=== PATIENT | male | born 1945 | race Caucasian/White ===

== ENCOUNTER 2019-04-07 13:35 | Outpatient (CLI) | payer MEDICARE ==
--- NOTE | 2019-04-07 15:10 | XRAY Report ---
Reason: CONTUSION OF LEFT FOREARM,INITIAL ENCOUNTER Procedure Date: 04/07/2019 Accession Number: [id number] / [id number] Procedure: WCP - Forearm LT CPT Code: FULL RESULT: EXAM: LEFT FOREARM RADIOGRAPHY EXAM DATE: 04/07/2019 01:51 PM. CLINICAL HISTORY: Contusion of left forearm, initial encounter. COMPARISON: None. TECHNIQUE: 2 views. FINDINGS: Bones: Apparent lucency traversing the proximal diaphysis of the radius without cortical disruption, nutrient canal versus soft tissue finding. No fractures or bone lesions. Joints: Normal. No effusions or subluxations in the visualized wrist or elbow joints. Soft Tissues: The aforementioned linear soft tissue lucency on the AP view potentially represents soft tissue injury such as laceration. No soft tissue gas or radiopaque foreign body is detected. Soft tissue swelling is noted along the forearm. IMPRESSION: No definite fracture or dislocation. Question soft tissue laceration as described. RADIA
== END 2019-04-07 13:36 | disposition home or self-care (01) ==
LOC: DI.WCP 13:35
PROVIDERS: ATTEND Family Medicine
DX: S50.12XA Contusion of left forearm, initial encounter (principal)

== ENCOUNTER 2019-04-07 13:36 | Outpatient (CLI) | payer MEDICARE ==
--- NOTE | 2019-04-07 15:15 | XRAY Report ---
Reason: CONTUSION OF LEFT FOREARM,INITIAL ENCOUNTER Procedure Date: 04/07/2019 Accession Number: [id number] / [id number] Procedure: WCP - Wrist 3 View LT CPT Code: FULL RESULT: EXAM: LEFT WRIST RADIOGRAPHY. EXAM DATE: 04/07/2019 01:51 PM. CLINICAL HISTORY: Contusion of left forearm, initial encounter. COMPARISON: None. TECHNIQUE: 3 views. FINDINGS: Bones: The bones are qualitatively osteopenic; this limits evaluation for underlying fractures or masses. There is a posttraumatic deformity of the distal ulna, appearance favors chronicity. No acute fractures or bone lesions. Joints: Normal. No subluxations. Soft Tissues: Normal. No soft tissue swelling. IMPRESSION: No acute fracture or dislocation. RADIA
== END 2019-04-07 13:37 | disposition home or self-care (01) ==
LOC: DI.WCP 13:36
PROVIDERS: ATTEND Family Medicine
DX: S50.12XA Contusion of left forearm, initial encounter (principal); M81.0 Age-related osteoporosis without current pathological fracture; M21.932 Unspecified acquired deformity of left forearm

== ENCOUNTER 2020-08-22 13:40 | Emergency (ER) | payer MEDICARE ==
[2020-08-22] MEDS ORDERED: TETANUS/DIPHTHERIA/PERTUSSIS 0.5 ML SYRINGE IM ONE (16:09)
--- NOTE | 2020-08-22 16:48 | XRAY Report ---
PROCEDURE: Foot 3 View LT INDICATIONS: PUNCTURE WOUND TECHNIQUE: 3 views of the foot were acquired. COMPARISON: None FINDINGS: Bones: No fractures or dislocations. No suspicious bony lesions. Age-appropriate degenerative small ges are seen. Incidental note is made of a bipartite medial sesamoid bone. Incidental note is made of an accessory ossicle, an os peroneum. Soft tissues: No tibiotalar joint effusion. Achilles tendon appears normal. No radiopaque foreign bodies are seen. IMPRESSION: No radiopaque foreign bodies are seen. No focal acute bony abnormality is seen. If there is strong clinical concern for developing osteomyelitis in this patient with this given hist ory, then please consider a dedicated MRI (without and with contrast) for further evaluation (assumin g that there is no contraindication). Reviewed by: Carlitos Kelly MD on 08/22/2020 3:46 PM [facility] Approved by: Carlitos Kelly MD on 08/22/2020 3:46 PM [facility] Station ID: [id number]
--- NOTE | 2020-08-22 17:01 | ED Physician Documentation ---
History of Present Illness - Stated complaint Stated Complaint: STEPPED ON NAIL - Chief complaint Chief Complaint: General - History obtained from History obtained from: Patient - History of Present Illness Timing: Prior to arrival Pain level max: 3 Pain level now: 3 Quality: sharp, sudden onset constant nonradiating pain - Additonal information Additional information: 75yM stepped on nail to left foot through his shoe just sea captain. tetanus not utd. no medication allergies known. Review of Systems Constitutional: denies: Fever, Chills Skin: reports: Other (+puncture wound) Musculoskeletal: denies: Joint pain PD PAST MEDICAL HISTORY - Past Medical History Past Medical History: Yes Cardiovascular: None Respiratory: None Endocrine/Autoimmune: None GI: Colon polyps : Frequency, Other HEENT: None Psych: None Musculoskeletal: Osteoarthritis Derm: None, Other - Past Surgical History Past Surgical History: Yes General: Colonoscopy Ortho: Shoulder arthroplasty Neuro: Other HEENT: Tonsil/Adenoidectomy, Other - Present Medications Home Medications: Ambulatory Orders Medication Instructions Recorded Confirmed Aspirin [Aspir 81] 81 mg PO DAILY 12/01/14 07/21/16 Flaxseed Oil [Flax Seed Oil] 1,000 mg PO DAILY 12/01/14 07/21/16 Krill Oil 1,000 mg PO DAILY 12/01/14 07/21/16 Meclizine HCl 25 mg PO Q6H PRN #20 tab.chew 07/21/16 Ciprofloxacin HCl [Cipro] 500 mg PO BID 7 Days #14 tablet 08/22/20 - Allergies Allergies/Adverse Reactions: Allergies Allergy/AdvReac Type Severity Reaction Status Date / Time No Known Drug Allergies Allergy Verified 07/21/16 14:23 - Social History Does the pt smoke?: No Smoking Status: Never smoker Does the pt drink ETOH?: Yes Does the pt have substance abuse?: No - Immunizations Immunizations are current?: No - POLST Patient has POLST: No PD ED PE NORMAL - General General: Alert and oriented X 3 - Derm Derm: Normal color, Other (puncture wound to L heel, hemostatic) - Extremities Extremities: No deformity, Normal ROM s pain - Neuro Neuro: Alert and oriented X 3 Results - Vitals Vitals: Vital Signs - 24 hr 08/22/20 13:49 Temperature 36.6 C Heart Rate 56 L Respiratory 18 Rate Blood Pressure 144/80 H O2 Saturation 97 Oxygen O2 Source Room air PD MEDICAL DECISION MAKING - ED course ED course: 75-year-old man with no known drug allergies, last known tetanus greater than 10 years presents after stepping on nail. Tetanus updated, no foreign body visualized on x-ray. Will send to biotics with pseudomonal coverage. Strict return precautions given Departure - Departure Disposition: Home, Self Care Clinical Impression: Puncture wound Instructions: ED Wound Puncture General Prescriptions: Ciprofloxacin HCl [Cipro] 500 mg PO BID 7 Days #14 tablet Comments: You have been seen in the ED for a puncture wound to your foot. Your x-ray did not show any signs of material in the wound. Your tetanus has been updated today. It is important that you follow-up if you have any signs of infection at the wound site. Check your wound daily for signs of infection. Wash thoroughly with soap and water daily. Take your antibiotics as prescribed. Return to the ED for any worsening of symptoms
[2020-08-22] MEDS ORDERED: CIPROFLOXACIN 250 MG TABLET PO STA (17:16)
[2020-08-22] MEDS ORDERED: IBUPROFEN 600 MG TABLET PO STA (17:18)
[2020-08-22 17:45] VITALS: BP 143/78
== END 2020-08-22 17:26 | disposition home or self-care (01) ==
LOC: ED 13:40
DX: S91.332A Puncture wound without foreign body, left foot, initial encounter (principal); W45.0XXA Nail entering through skin, initial encounter; W22.8XXA Striking against or struck by other objects, initial encounter; Z23 Encounter for immunization; Z79.82 Long term (current) use of aspirin
CPT/HCPCS: 73630; 90471; 90715; 99283; A9270

== ENCOUNTER 2021-03-17 08:00 | Outpatient (CLI) | payer MEDICARE ==
[2021-03-17 12:22] LABS: BASOPHILS % (AUTO) 0.5 %; EOSINOPHILS # (AUTO) 0.1 10^3/uL (0.0-0.7); EOSINOPHILS % (AUTO) 1.4 %; HCT - HEMATOCRIT 43.5 % (42.0-52.0); HGB - HEMOGLOBIN 14.8 g/dL (14.0-18.0); LYMPHOCYTES # (AUTO) 0.9 10^3/uL (1.5-3.5); LYMPHOCYTES % (AUTO) 16.1 %; MEAN CORPUSCULAR HEMOGLOBIN 33.4 pg (27.0-31.0); MEAN CORPUSCULAR VOLUME 98.2 fL (80.0-94.0); MONOCYTES # (AUTO) 0.6 10^3/uL (0.0-1.0); MONOCYTES % (AUTO) 10.9 %; NEUTROPHILS # (AUTO) 4.1 10^3/uL (1.5-6.6); NEUTROPHILS % (AUTO) 70.6 %; PLT - PLATELET COUNT 276 10^3/uL (130-450); RED BLOOD COUNT 4.43 10^6/uL (4.70-6.10); RED CELL DISTRIBUTION WIDTH 12.3 % (12.0-15.0); WHITE BLOOD COUNT 5.9 x10^3/uL (4.8-10.8)
[2021-03-17 12:48] LABS: ESTIMATED AVERAGE GLUCOSE 114 mg/dL (70-100); HEMOGLOBIN A1c% 5.6 % (4.27-6.07)
[2021-03-17 12:49] LABS: ALBUMIN 4.1 g/dL (3.2-5.5); ALBUMIN/GLOBULIN RATIO 1.7 (1.0-2.2); ALKALINE PHOSPHATASE 49 IU/L (42-121); ALT ALANINE AMINOTRANSFERASE 13 IU/L (10-60); AST ASPARTATE AMINOTRANSFERASE 25 IU/L (10-42); BILIRUBIN,TOTAL 1.2 mg/dL (0.2-1.0); BUN - BLOOD UREA NITROGEN 17 mg/dL (6-20); CALCIUM 9.4 mg/dL (8.5-10.3); CARBON DIOXIDE - CO2 21 mmol/L (21-32); CHLORIDE 105 mmol/L (101-111); CHOL/HDL RATIO 3.1 (<5.0); CHOLESTEROL 169 mg/dL; CREATININE 1.1 mg/dL (0.6-1.2); GFR - MDRD 66 (>89); GLUCOSE 103 mg/dL (70-100); HDL CHOLESTEROL 54 mg/dL; LDL CHOLESTEROL,CALCULATED 98 mg/dL; LDL/HDL RATIO 1.8 (<3.6); POTASSIUM 4.5 mmol/L (3.5-5.0); SODIUM 138 mmol/L (135-145); TOTAL PROTEIN 6.5 g/dL (6.7-8.2); TRIGLYCERIDES 85 mg/dL; VLDL CHOLESTEROL 17 mg/dL
[2021-03-17 12:53] LABS: THYROID STIMULATING HORMONE 1.44 uIU/mL (0.34-5.60)
[2021-03-17 12:55] LABS: CREATININE,URINE 200.6 mg/dL; MICROALBUMIN,URINE 0.8 mg/dL (0-300.0)
== END 2021-03-17 23:59 | disposition home or self-care (01) ==
LOC: LAB.WCP 08:00
PROVIDERS: ATTEND Internal Medicine
DX: Z01.84 Encounter for antibody response examination (principal); E78.5 Hyperlipidemia, unspecified; R73.01 Impaired fasting glucose; C61 Malignant neoplasm of prostate; J06.9 Acute upper respiratory infection, unspecified
CPT/HCPCS: 36415; 80053; 80061; 82043; 82570; 83036; 83721; 84153; 84443; 85025; 86769

== ENCOUNTER 2022-01-31 08:00 | Outpatient (CLI) | payer MEDICARE ==
[2022-01-31 12:22] LABS: BASOPHILS % (AUTO) 0.8 %; EOSINOPHILS # (AUTO) 0.1 10^3/uL (0.0-0.7); EOSINOPHILS % (AUTO) 2.1 %; HCT - HEMATOCRIT 44.1 % (42.0-52.0); HGB - HEMOGLOBIN 14.7 g/dL (14.0-18.0); LYMPHOCYTES # (AUTO) 1.1 10^3/uL (1.5-3.5); MEAN CORPUSCULAR HEMOGLOBIN 32.3 pg (27.0-31.0); MEAN CORPUSCULAR HGB CONC 33.3 g/dL (32.0-36.0); MEAN CORPUSCULAR VOLUME 96.9 fL (80.0-94.0); MEAN PLATELET VOLUME 10.4 fL (7.4-11.4); MONOCYTES # (AUTO) 0.6 10^3/uL (0.0-1.0); MONOCYTES % (AUTO) 11.6 %; NEUTROPHILS # (AUTO) 3.4 10^3/uL (1.5-6.6); NEUTROPHILS % (AUTO) 64.5 %; PLT - PLATELET COUNT 264 10^3/uL (130-450); RED BLOOD COUNT 4.55 10^6/uL (4.70-6.10); RED CELL DISTRIBUTION WIDTH 12.5 % (12.0-15.0); WHITE BLOOD COUNT 5.3 x10^3/uL (4.8-10.8)
[2022-01-31 12:40] LABS: ALBUMIN/GLOBULIN RATIO 1.5 (1.0-2.2); ALKALINE PHOSPHATASE 51 IU/L (42-121); ALT ALANINE AMINOTRANSFERASE 17 IU/L (10-60); AST ASPARTATE AMINOTRANSFERASE 23 IU/L (10-42); BILIRUBIN,TOTAL 0.7 mg/dL (0.2-1.0); BUN - BLOOD UREA NITROGEN 17 mg/dL (6-20); CARBON DIOXIDE - CO2 25 mmol/L (21-32); CHLORIDE 104 mmol/L (101-111); CHOL/HDL RATIO 2.9 (<5.0); CHOLESTEROL 168 mg/dL; GFR - MDRD 73 (>89); GLUCOSE 114 mg/dL (70-100); HDL CHOLESTEROL 57 mg/dL; LDL CHOLESTEROL,CALCULATED 97 mg/dL; LDL/HDL RATIO 1.7 (<3.6); SODIUM 140 mmol/L (135-145); TOTAL PROTEIN 6.7 g/dL (6.7-8.2); TRIGLYCERIDES 71 mg/dL; VLDL CHOLESTEROL 14 mg/dL
[2022-01-31 13:36] LABS: ESTIMATED AVERAGE GLUCOSE 123 mg/dL (70-100); HEMOGLOBIN A1c% 5.9 % (4.27-6.07)
== END 2022-01-31 23:59 | disposition home or self-care (01) ==
LOC: LAB.N 08:00
PROVIDERS: ATTEND Internal Medicine Cardiovascular Disease
DX: E78.5 Hyperlipidemia, unspecified (principal); C61 Malignant neoplasm of prostate; I10 Essential (primary) hypertension; R73.01 Impaired fasting glucose
CPT/HCPCS: 36415; 80053; 80061; 83036; 83721; 84153; 85025

== ENCOUNTER 2023-05-22 10:10 | Outpatient (CLI) | payer MEDICARE ==
[2023-05-22 12:09] LABS: BASOPHILS % (AUTO) 0.7 %; EOSINOPHILS # (AUTO) 0.1 10^3/uL (0.0-0.7); EOSINOPHILS % (AUTO) 1.1 %; HCT - HEMATOCRIT 41.8 % (42.0-52.0); HGB - HEMOGLOBIN 14.2 g/dL (14.0-18.0); LYMPHOCYTES % (AUTO) 18.9 %; MEAN CORPUSCULAR HEMOGLOBIN 33.1 pg (27.0-31.0); MEAN CORPUSCULAR VOLUME 97.4 fL (80.0-94.0); MEAN PLATELET VOLUME 10.6 fL (7.4-11.4); MONOCYTES # (AUTO) 0.6 10^3/uL (0.0-1.0); MONOCYTES % (AUTO) 11.4 %; NEUTROPHILS # (AUTO) 3.6 10^3/uL (1.5-6.6); NEUTROPHILS % (AUTO) 67.3 %; PLT - PLATELET COUNT 233 10^3/uL (130-450); RED BLOOD COUNT 4.29 10^6/uL (4.70-6.10); RED CELL DISTRIBUTION WIDTH 12.5 % (12.0-15.0); WHITE BLOOD COUNT 5.3 x10^3/uL (4.8-10.8)
[2023-05-22 12:31] LABS: CREATININE,URINE 107.9 mg/dL; MICROALBUMIN,URINE < 0.7 mg/dL
[2023-05-22 12:40] LABS: THYROID STIMULATING HORMONE 1.57 uIU/mL (0.34-5.60)
[2023-05-22 12:41] LABS: ALBUMIN 4.3 g/dL (3.2-5.5); ALBUMIN/GLOBULIN RATIO 1.9 (1.0-2.2); ALKALINE PHOSPHATASE 45 IU/L (42-121); ALT ALANINE AMINOTRANSFERASE 15 IU/L (10-60); AST ASPARTATE AMINOTRANSFERASE 20 IU/L (10-42); BILIRUBIN,TOTAL 0.6 mg/dL (0.2-1.0); BUN - BLOOD UREA NITROGEN 17 mg/dL (6-20); CALCIUM 9.2 mg/dL (8.5-10.3); CARBON DIOXIDE - CO2 26 mmol/L (21-32); CHLORIDE 108 mmol/L (101-111); CHOL/HDL RATIO 2.7 (<5.0); CHOLESTEROL 154 mg/dL; GFR - MDRD 73 (>89); GLUCOSE 110 mg/dL (74-104); HDL CHOLESTEROL 57 mg/dL; LDL CHOLESTEROL,CALCULATED 82 mg/dL; LDL/HDL RATIO 1.4 (<3.6); POTASSIUM 4.2 mmol/L (3.5-4.5); SODIUM 139 mmol/L (135-145); TOTAL PROTEIN 6.6 g/dL (6.4-8.9); TRIGLYCERIDES 77 mg/dL (48-352); VLDL CHOLESTEROL 15 mg/dL
[2023-05-22 12:43] LABS: ESTIMATED AVERAGE GLUCOSE 114 mg/dL (70-100); HEMOGLOBIN A1c% 5.6 % (4.27-6.07)
[2023-05-23 21:07] LABS: KAPPA FREE LT CHAINS SERUM 23.9 mg/L (3.3-19.4); KAPPA/LAMBDA RATIO SERUM 1.41 (0.26-1.65)
[2023-05-24 16:08] LABS: A/G RATIO 1.6 (0.7-1.7); ALBUMIN 3.7 g/dL (2.9-4.4); ALPHA-1-GLOBULIN 0.2 g/dL (0.0-0.4); ALPHA-2-GLOBULIN 0.6 g/dL (0.4-1.0); BETA GLOBULIN 0.9 g/dL (0.7-1.3); GAMMA GLOBULIN 0.7 g/dL (0.4-1.8); GLOBULIN TOTAL 2.4 g/dL (2.2-3.9); IMMUNOGLOBULIN A (IGA) 146 mg/dL (61-437); IMMUNOGLOBULIN G (IGG) 695 mg/dL (603-1613); IMMUNOGLOBULIN M (IGM) 43 mg/dL (15-143); M-SPIKE Not Observed g/dL (Not Observed); PROTEIN TOTAL 6.1 g/dL (6.0-8.5)
== END 2023-05-22 10:11 | disposition home or self-care (01) ==
LOC: LAB.N 10:10
PROVIDERS: ATTEND Internal Medicine Cardiovascular Disease
DX: I10 Essential (primary) hypertension (principal); C61 Malignant neoplasm of prostate; E78.5 Hyperlipidemia, unspecified; R73.01 Impaired fasting glucose; I49.3 Ventricular premature depolarization; G62.9 Polyneuropathy, unspecified
CPT/HCPCS: 36415; 80053; 80061; 82043; 82570; 82784; 83036; 83521; 83721; 84153; 84155; 84165; 84443; 85025; 86334

== ENCOUNTER 2023-08-27 14:29 | Outpatient (CLI) | payer MEDICARE | END 2023-08-27 14:30 | disposition home or self-care (01) | LOC: LAB.N 14:29 | PROVIDERS: ATTEND Physician Assistant Medical | DX: Z85.46 Personal history of malignant neoplasm of prostate (principal) | CPT/HCPCS: 36415; 84153 ==

== ENCOUNTER 2023-11-29 09:19 | Day surgery (SDC) | payer MEDICARE ==
--- NOTE | 2023-11-29 10:00 | ANESTHESIA ---
Pre-Anesthesia VS, & Labs - Diagnosis screening exam - Procedure colonoscopy Vital Signs: Temp Pulse Resp BP Pulse Ox O2 Flow Rate 37.1 C 53 L 16 159/91 H 99 11/29/23 09:43 11/29/23 09:43 11/29/23 09:43 11/29/23 09:43 11/29/23 09:43 Height: 5 ft 10.5 in Weight (kg): 81.9 kg Body Mass Index: 25.5 BMI Classification: Overweight - NPO >8 hours Home Medications and Allergies Aspirin [Aspir 81] 81 mg PO DAILY 12/01/14 Flaxseed Oil [Flax Seed Oil] 1,000 mg PO DAILY 12/01/14 Krill Oil 1,000 mg PO DAILY 12/01/14 Allergies/Adverse Reactions: Allergies Allergy/AdvReac Type Severity Reaction Status Date / Time No Known Drug Allergies Allergy Verified 07/21/16 14:23 Anes History & Medical History - Anesthetic History Anesthesia Complications: reports: No previous complications - Medical History Cardiovascular: reports: Arrhythmia (unsure what kind, resolved on mes) Pulmonary: reports: None Gastrointestinal: reports: Colon polyps Urinary: reports: Frequency, Other Musculoskeletal: reports: Osteoarthritis Endocrine/Autoimmune: reports: None Blood Disorders: reports: None Skin: reports: None, Other Smoking Status: Never smoker Psychosocial: reports: No issues indicated History of Cancer?: Yes (prostate) - Surgical History General: reports: Colonoscopy Eyes Ears Nose Throat (EENT): reports: Tonsil/Adenoidectomy, Other Neurologic: reports: Other Orthopedic: reports: Shoulder arthroplasty Dermatologic: reports: Skin cancer surgery Exam General: Alert, Oriented x3, Cooperative, No acute distress Dental: WNL Mouth Openin Fingerbreadth Neck Mobility: Normal Mallampati classification: II Thyromental Distance: 4-6 cm Mental/Cognitive Status: Alert/Oriented X3, Normal for patient Plan Anesthesia Type: General, Total IV Consent for Procedure(s) Verified and Reviewed: Yes Code Status: Attempt Resuscitation ASA classification: 2-Mild systemic disease Is this case an emergency?: No
[2023-11-29] MEDS: LACTATED RINGERS 1,000 ML IV ONE (10:03)
--- NOTE | 2023-11-29 10:05 | HISTORY & PHYSICAL EXAMINATION ---
Chief Complaint - Chief Complaint Chief Complaint: here for colonoscopy History of Present Illness - History Obtained From Records Reviewed: yes History obtained from: pt Exam Limitations: none - History of Present Illness HPI Comment/Other: here for colon cancer screening. last colonoscopy 2011. hx prostate radiation. History - Past Medical History Cardiovascular: reports: Arrhythmia (unsure what kind, resolved on mes) Respiratory: reports: None Endocrine/Autoimmune: reports: None GI: reports: Colon polyps : reports: Frequency, Other HEENT: reports: None Psych: reports: None Musculoskeletal: reports: Osteoarthritis Derm: reports: None, Other MRSA Hx?: No - Past Surgical History General: reports: Colonoscopy Ortho: reports: Shoulder arthroplasty Neuro: reports: Other HEENT: reports: Tonsil/Adenoidectomy, Other Derm: reports: Skin cancer surgery - POLST Patient has POLST: No Meds/Allgy - Home Medications Home Medications: Ambulatory Orders Medication Instructions Recorded Confirmed Aspirin [Aspir 81] 81 mg PO DAILY 12/01/14 07/21/16 Flaxseed Oil [Flax Seed Oil] 1,000 mg PO DAILY 12/01/14 07/21/16 Krill Oil 1,000 mg PO DAILY 12/01/14 07/21/16 Ciprofloxacin HCl [Cipro] 500 mg PO BID 7 Days #14 tablet 08/22/20 Flecainide Acetate 1 tab ORAL BID 11/29/23 11/29/23 [id number] CD [Cardizem Cd] 1 tab ORAL DAILY 11/29/23 11/29/23 - Allergies Allergies/Adverse Reactions: Allergies Allergy/AdvReac Type Severity Reaction Status Date / Time No Known Drug Allergies Allergy Verified 07/21/16 14:23 Review of Systems - Other Findings Other Findings: 10 pt ros as above otherwise unremarkable Exam - Vital Signs Vital Signs: Vital Signs x48h Temp Pulse Resp BP Pulse Ox 11/29/23 09:43 37.1 C 53 L 16 159/91 H 99 - Physical Exam General Appearance: positive: No acute distress, Alert Eyes Bilateral: positive: Normal inspection, EOMI ENT: positive: No signs of dehydration Neck: positive: No JVD, Trachea midline Respiratory: positive: No respiratory distress Cardiovascular: positive: Regular rate & rhythm Abdomen: positive: Non-tender, No distention Neurologic/Psychiatric: positive: Oriented x3 Conclusion/Plan - Problem List (1) Colon cancer screening Conclusion/Plan: plan colonoscopy. parq held and consent obtained
[2023-11-29] MEDS ORDERED: PROPOFOL 500 MG/50 ML 500 MG/50 ML VIAL ONE (10:27)
[2023-11-29] MEDS: SIMETHICONE 40 MG/0.6 ML 15 ML BOTTLE PO ONE (10:33)
[2023-11-29] MEDS: LACTATED RINGERS 500 ML IV ONE (11:01)
[2023-11-29 11:21] VITALS: O2SAT 98
[2023-11-29 11:30] VITALS: BP 142/81
--- NOTE | 2023-11-29 16:23 | ANESTHESIA POST OP EVALUATION ---
Anesthesia Post Eval - Post Anesthesia Eval Vitals: Last Vital Signs Temp 36.5 C 11/29/23 11:29 Pulse 52 L 11/29/23 11:29 Resp 14 11/29/23 11:29 BP 142/81 H 11/29/23 11:29 Pulse Ox 98 11/29/23 11:29 O2 Flow Rate CV Function Including HR & BP: Stable Pain Control: Satisfactory Nausea & Vomiting: Negative Mental Status: Baseline Respiratory Status: Airway Patent Hydration Status: Satisfactory Anesthesia Complications: None
== END 2023-11-29 09:20 | disposition home or self-care (01) ==
LOC: SDS 09:19
PROVIDERS: ATTEND Surgery
PROC: 0DBP8ZZ Excision of Rectum, Via Natural or Artificial Opening Endoscopic (ICD-10-PCS; 2023-11-29)
PROC: 3E0H8KZ Introduction of Other Diagnostic Substance into Lower GI, Via Natural or Artificial Opening Endoscopic (ICD-10-PCS; 2023-11-29)
PROC: 0DBH8ZZ Excision of Cecum, Via Natural or Artificial Opening Endoscopic (ICD-10-PCS; principal; 2023-11-29 10:30)
DX: Z12.11 Encounter for screening for malignant neoplasm of colon (principal); D12.0 Benign neoplasm of cecum; D12.8 Benign neoplasm of rectum; K57.30 Diverticulosis of large intestine without perforation or abscess without bleeding
CPT/HCPCS: 45380; 45381; 45385; A9270; J7120